=== PATIENT | male | born 2000 | race Two or more races ===

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

== ENCOUNTER 2020-07-03 21:07 | Emergency (ER) | payer MEDICAID, OTHER ==
[~2020-07-03] VITALS: Ht 172.7 cm; Wt 81.6 kg
[2020-07-03 23:22] LABS: Basophils # (auto) 0 10 ^3/uL (0-0.2); Basophils % (auto) 0.5 % (0.0-2.0); Eosinophils # (auto) 0 10 ^3/uL (0-0.8); Eosinophils % (auto) 0.5 % (0.0-7.0); Hematocrit 43.2 % (41.0-53.0); Hemoglobin 14.8 g/dL (13.5-17.5); Lymphocytes % (auto) 33.7 % (10.0-50.0); Mean Corpuscular Hemoglobin 28.3 pg (28.0-32.0); Mean Corpuscular Hgb Conc. 34.3 g/dL (32.0-36.0); Mean Corpuscular Volume 82.3 fL (80.0-100.0); Monocytes # (auto) 0.6 10 ^3/uL (0-1.3); Monocytes % (auto) 6.7 % (0.0-12.0); Neutrophils # (auto) 5.2 10 ^3/uL (1.6-8.6); Neutrophils % (auto) 58.6 % (37.0-80.0); Nucleated Red Blood Cells % 0.1 %; Red Blood Cells 5.25 10^6/uL (4.5-5.90); White Blood Cell 8.9 10^3/uL (4.4-10.8)
[2020-07-03 23:32] LABS: Albumin 4.4 g/dL (3.4-5.0); Potassium 3.6 mmol/L (3.5-5.1)
[2020-07-03 23:35] LABS: BUN/Creatinine Ratio 11.2; Bilirubin, Total 1.1 mg/dL (0.2-1.0); Total Protein 8.4 g/dL (6.4-8.2)
[2020-07-04 06:00] VITALS: BP 112/84
== END 2020-07-04 06:27 | disposition home or self-care (01) ==
LOC: ER 21:07
DX: M54.42 Lumbago with sciatica, left side (principal); R55 Syncope and collapse; Z88.1 Allergy status to other antibiotic agents
CPT/HCPCS: 36415; 72131; 80053; 85025; 93005